=== PATIENT | male | born 1950 | race Caucasian/White ===

== ENCOUNTER 2023-11-15 14:51 | Emergency (ER) | payer MEDICARE, SELFPAY ==
[2023-11-15 14:53] VITALS: BP 169/90
[2023-11-15 15:09] LABS: % Basophils 0.6 % (0-2); % Eosinophils 4.3 % (0-6); % Lymphocytes 28.9 % (20.5-51.1); % Neutrophils 58.2 % (42.2-75.2); Absolute Eosinophils 0.2 10^3/uL (0-0.7); Absolute Lymphocytes 1.5 10^3/uL (1.2-3.4); Absolute Monocytes 0.4 10^3/uL (0.1-0.6); Hematocrit 42.9 % (39.0-52.0); Hemoglobin 14.4 g/dL (13.0-18.0); Mean Corp Hgb Conc. 33.6 g/dL (33.0-37.0); Mean Corpuscular Hgb 28.5 pg (27.0-31.0); Mean Platelet Volume 9.2 fL (7.4-10.4); Nucleated Red Blood Cells % 0 % (-); Platelet Count 233 10^3/uL (130-400); Red Blood Cell Count 5.05 10^6/uL (4.70-6.10); Red Cell Dist. Width 14.9 % (11.5-14.5); White Blood Cell Count 5.2 10^3/uL (4.8-10.8)
[2023-11-15 15:26] LABS: ALT (SGPT) 17 U/L (0-50); AST (SGOT) 29 U/L (17-59); Albumin 4.5 g/dl (3.5-5.0); Alkaline Phosphatase 66 U/L (38-126); Blood Urea Nitrogen 15 mg/dl (9-20); Calcium 9.9 mg/dl (8.4-10.2); Carbon Dioxide 28 mmol/L (22-30); Chloride 106 mmol/L (98-107); Glucose 89 mg/dl (70-99); Potassium 4.6 mmol/L (3.5-5.1); Sodium 140 mmol/L (135-145); Total Bilirubin 0.9 mg/dl (0.2-1.3); Total Protein 7.3 g/dl (6.3-8.2); eGFR > 60.00
[2023-11-15 15:45] VITALS: BMI 23.8
--- NOTE | 2023-11-15 16:35 | ED.GENMED ---
History of Present Illness
<Gerald Machado Jr., PA-C - Last Filed: 11/15/23 16:43>
General
Chief Complaint: Skin Problem
Source: patient
Exam Limitations: none
Time Seen by Provider: 11/15/23 15:41
Nursing documentation reviewed up to this point in time: agreed with
Travel History
Have you had any contact with someone who has COVID-19?: No
Do you have any symptoms of coronavirus? Fever > 100 degrees, chills, cough, shortness of breath, sore throat, loss of taste or smell, muscle aches, or headache?: No
History of Present Illness
History of Present Illness:
73-year-old male with past medical history of A-fib, previous stroke presenting to the emergency department today with concerns of redness and swelling to the right lower leg that has been present over the past week was started on Keflex a week ago
treated with Keflex for 5 days had some improvement but not fully resolved. Denies any fevers or systemic symptoms. He claims that he noted some initial fluctuance and induration which is since resolved and is not currently present. Denies any
immunosuppressive state.
Review of Systems
<Gerald Machado Jr., PA-C - Last Filed: 11/15/23 16:43>
Review of Systems
Allergies reviewed?: Yes
All Other Systems: ROS reviewed and negative except as documented in HPI and ROS
Phy Exam
<Gerald Machado Jr., PA-C - Last Filed: 11/15/23 16:43>
Physical Exam
Physical Exam:
GENERAL: Alert , in no apparent distress
EYE: pupils equal and reactive
NECK: Supple, no significant adenopathy.
ENT: o/p clr, mmm.
CARDIAC: Regular rate and rhythm .
LUNGS: Clear breath sounds bilaterally, no acute respiratory distress, no wheezes/rales/rhonchi
ABDOMEN: Soft, without focal tenderness, no r/g, no cvat
NEUROLOGICAL: Alert and oriented, no focal neuro deficits
SKIN: Roughly 15 cm in diameter circular red rash without tenderness no fluctuance or induration a degree of central clearing. Warm and dry, skin intact.
MUSCULOSKELETAL: No edema, well perfused.
PSYCH: Normal and appropriate interaction.
Course
<Gerald Machado Jr. PADaveyC - Last Filed: 11/15/23 16:43>
Orders/Labs/Results
Orders:
Orders
11/15/23 14:59
CMP [Comprehensive Metabolic Panel] Urgent
Complete Blood Count/With Diff Urgent
11/15/23 16:31
Doxycycline [Vibramycin] 100 mg PO NOW STA
Abnormal Lab Results
11/15/23
14:59
RDW 14.9 H %
(11.5-14.5)
11/15/23 14:59
11/15/23 14:59
Vital Signs
Initial and Last Documented VS:
Initial Vital Signs
Temp Pulse Resp BP Pulse Ox
98.2 F 53 18 169/90 99
11/15/23 14:53 11/15/23 14:53 11/15/23 14:53 11/15/23 14:53 11/15/23 14:53
Last Documented Vital Signs
Temp Pulse Resp BP Pulse Ox
98.2 F 53 18 169/90 99
11/15/23 14:53 11/15/23 14:53 11/15/23 14:53 11/15/23 14:53 11/15/23 14:53
<George Morris DO - Last Filed: 11/15/23 19:08>
Orders/Labs/Results
Orders:
Orders
11/15/23 14:59
CMP [Comprehensive Metabolic Panel] Urgent
Complete Blood Count/With Diff Urgent
11/15/23 16:31
Doxycycline [Vibramycin] 100 mg PO NOW STA
Abnormal Lab Results
11/15/23
14:59
RDW 14.9 H %
(11.5-14.5)
11/15/23 14:59
11/15/23 14:59
Vital Signs
Initial and Last Documented VS:
Initial Vital Signs
Temp Pulse Resp BP Pulse Ox
98.2 F 53 18 169/90 99
11/15/23 14:53 11/15/23 14:53 11/15/23 14:53 11/15/23 14:53 11/15/23 14:53
Last Documented Vital Signs
Temp Pulse Resp BP Pulse Ox
98.2 F 53 18 169/90 99
11/15/23 14:53 11/15/23 14:53 11/15/23 14:53 11/15/23 14:53 11/15/23 14:53
<Gerald Machado Jr., PA-C - Last Filed: 11/15/23 16:43>
MDM/Problems Addressed
MDM/Problems Addressed:
73-year-old male presenting to the emergency department today with concerns of a rash to the right lower leg just below the knee on the medial aspect roughly 15 cm in total diameter circular in shape no fluctuance or induration no tenderness
blanchable. Could be consistent with erythema migrans concern this patient will be started on doxycycline. No systemic symptoms does not cross the joint patient with no significant risk factors or immunosuppression no significant worsening at home
considering this I feel the patient does not require admission for IV antibiotics as the diagnosis of cellulitis is unclear. He was given very strict return precautions. 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
it and does agree with the plan he will return for any worsening.
<Gerald Machado Jr., PA-C - Last Filed: 11/15/23 16:43>
*Critical Care Note
Total Time (30-74mins, 75-104mins- exclusive of procedures): Not Applicable
ED Attending Note
<Gerald Machado Jr., PA-C - Last Filed: 11/15/23 16:43>
-
Portions of this chart may have been created with voice recognition software.� Occasional wrong word or��sound alike� substitutions may have occurred due to the inherent limitations of voice recognition software.
<George Morris DO - Last Filed: 11/15/23 19:08>
ED Attending Note
Patient seen and examined by attending physician: Yes
I performed the substantive portion of visit, reviewed & personally made and approve the management plan that is documented in note by myself or YUNIEL.: Yes
ED Attending Note:
Patient is a 73-year-old male who presents to the emergency department with a rash on his right lower leg. Started couple weeks ago and then was placed on cephalexin. Patient finished a course of that but the rash seems to have expanded. Patient
denies any fever or chills, weight changes, joint pain. Patient has had Lyme's disease twice in the past. It does appear to be a bull's-eye rash. Discussed with the patient treatment options and will discharge the patient to follow-up with his
family doctor. Patient does see his respiratory therapy aide in a week. We did discuss the patient's cardiac hardware although it should be fully endothelialized by now.
Discharge Plan
Departure
Patient Disposition: Home (Routine Discharge)
Date of Disposition: 11/15/23
Time of Disposition: 16:39
Patient with high blood pressure during this ER visit?: No
Condition: Good
Covid-19: Not Applicable
Discharge Problem:
Skin rash
Instructions: Lyme Disease (DC), Doxycycline
Prescriptions:
New
doxycycline hyclate 100 mg tablet
100 mg PO BID 10 Days Qty: 20 0RF
No Action
aspirin 81 MG tablet,delayed release (DR/EC)
81 mg PO DAILY
amoxicillin-pot clavulanate 875 MG/125 MG tablet
1 tab PO Q12
Activity Restrictions/Additional Instructions:
You came to the emergency department today with concerns of rash to your right lower leg. This could be cellulitis which case doxycycline will cover additional microbes other than Keflex. It is also possible this could be from Lyme disease.
Please take medication twice daily for the next 10 days and follow closely as an outpatient. Return to the emergency department for any worsening, new or concerning symptoms.
Interventions
Interventions:
*General Assessment Last Done: 11/15/23 17:14
*Nursing Disposition Last Done: 11/15/23 17:14
ED-Skin Assessment Last Done: 11/15/23 15:45
Discharge Date and Time
Discharge Date/Time: 11/15/23 17:14
Print Language: GRENADIAN
[2023-11-15] MEDS: VIBRAMYCIN 100 MG PO (16:46)
== END 2023-11-15 17:14 | disposition home or self-care (01) ==
LOC: EMR 14:51
PROVIDERS: EMERGENCY PHYSICIAN Emergency Medicine
DX: R21 Rash and other nonspecific skin eruption (principal); I48.91 Unspecified atrial fibrillation; Z86.73 Personal history of transient ischemic attack (TIA), and cerebral infarction without residual deficits
CPT/HCPCS: 99283; 80053; 85025